=== PATIENT | female | born 1945 | race Caucasian/White ===

== ENCOUNTER 2016-09-12 23:56 | Inpatient (IN) | payer OTHER ==
[~2016-09-12] VITALS: Ht 154.9 cm; Wt 65.5 kg
[2016-09-13 00:55] LABS: BASOPHIL % 0.2 % (0-2); PLATELET COUNT 391 x10^3mcL (130-400)
[2016-09-13 01:05] LABS: RED CELL DISTRIBUTION WIDTH 17.8 % (11.5-14.5)
[2016-09-13 01:17] LABS: ALBUMIN 2.9 g/dL (3.4-5.0); ALKALINE PHOSPHATASE 79 U/L (46-116); ALT/SGPT 15 U/L (14-59); AST/SGOT 14 U/L (15-37); BILIRUBIN TOTAL 0.1 mg/dL (0.20-1.00); CALCIUM 11.1 mg/dL (8.5-10.1); CARBON DIOXIDE 24.2 mmol/L (21-32); CHLORIDE SERUM 103 mmol/L (98-107); CREATININE SERUM 0.6 mg/dL (0.6-1.0); GFR1 > 60 mL/min; GLUCOSE SERUM 93 mg/dL (74-106); POTASSIUM SERUM 4.6 mmol/L (3.5-5.1); SODIUM SERUM 136 mmol/L (136-145); TOTAL PROTEIN, SERUM 7.8 g/dL (6.4-8.2)
[2016-09-13] MEDS ORDERED: HUMALOG MIX 75/10 ML SC (03:20)
[2016-09-13] MEDS ORDERED: INDOMETHACIN50 MG PO (03:21)
[2016-09-13] MEDS ORDERED: METFORMIN HCL850 MG PO (03:21)
[2016-09-13] MEDS ORDERED: LISINOPRIL10 MG PO (03:21)
[2016-09-13 04:29] LABS: CHOLESTEROL/HDL RATIO 1.9
[2016-09-13 04:34] LABS: T3 TOTAL 0.89 ng/mL
[2016-09-13 04:36] LABS: FREE T4 1.15 ng/dL (0.76-1.46); FREE THYROXINE INDEX 2.9 ug/dL (1.4-4.5); T4(THYROXINE) 8.1 ug/dL (4.7-13.3)
[2016-09-13 05:32] VITALS: BP 134/75
[2016-09-13 07:20] LABS: UA SPECIFIC GRAVITY >=1.030 (1.005-1.035); microscopic required? YES; urine erythrocyte TRACE (NEGATIVE)
[2016-09-13 11:29] VITALS: BP 135/76
[2016-09-13 14:35] VITALS: BP 114/64
[2016-09-13 15:43] VITALS: Ht 154.9 cm; Wt 65.5 kg
[2016-09-13 16:36] LABS: IRON 24 ug/dL (50-170); TOTAL IRON BINDING CAPACITY 293 ug/dL (250-450)
[2016-09-13 16:43] LABS: RED BLOOD CELLS 4.95 M/mm3 (4.10-5.10)
[2016-09-13 18:00] VITALS: BP 109/63
[2016-09-13 22:03] VITALS: BP 119/63
[2016-09-14 06:14] VITALS: BP 122/69
[2016-09-14 06:40] LABS: PLATELET COUNT 357 x10^3mcL (130-400)
[2016-09-14 06:53] LABS: MAGNESIUM 1.7 mg/dL (1.8-2.4); PHOSPHOROUS 2.5 mg/dL (2.5-4.9)
[2016-09-14 06:57] LABS: ALKALINE PHOSPHATASE 73 U/L (46-116); ALT/SGPT 17 U/L (14-59); AST/SGOT 12 U/L (15-37); BILIRUBIN TOTAL 0.18 mg/dL (0.20-1.00); CALCIUM 9.9 mg/dL (8.5-10.1); CARBON DIOXIDE 27.6 mmol/L (21-32); CHLORIDE SERUM 109 mmol/L (98-107); CREATININE SERUM 0.5 mg/dL (0.6-1.0); GFR1 > 60 mL/min; GLUCOSE SERUM 140 mg/dL (74-106); POTASSIUM SERUM 4.5 mmol/L (3.5-5.1); SODIUM SERUM 143 mmol/L (136-145)
[2016-09-14 07:08] LABS: ALBUMIN 2.5 g/dL (3.4-5.0)
[2016-09-14 09:43] LABS: BAND NEUTROPHIL 7 % (0-10); BASOPHIL 0 % (0-2); MONOCYTE 7 % (0-7); SEGMENTED NEUTROPHILS 62 % (37-75); rbc morphology (normal/abnorm) ABNORMAL (NORMAL); tear drop cell (dacryocyte) 1+
[2016-09-14 09:44] LABS: PLATELET MORPHOLOGY LARGE PLATELET SEEN
[2016-09-14 10:04] VITALS: BP 126/55
[2016-09-14 13:35] VITALS: BP 131/59
[2016-09-14 17:21] VITALS: BP 122/67
[2016-09-14 21:55] VITALS: BP 140/65
[2016-09-15 06:08] VITALS: BP 119/61
[2016-09-15 06:41] LABS: CALCIUM 9.4 mg/dL (8.5-10.1); CARBON DIOXIDE 26.4 mmol/L (21-32); CHLORIDE SERUM 99 mmol/L (98-107); CREATININE SERUM 0.6 mg/dL (0.6-1.0); GFR1 > 60 mL/min; GLUCOSE SERUM 207 mg/dL (74-106); MAGNESIUM 1.7 mg/dL (1.8-2.4); PHOSPHOROUS 2.1 mg/dL (2.5-4.9); SODIUM SERUM 134 mmol/L (136-145)
[2016-09-15 06:47] LABS: PLATELET COUNT 329 x10^3mcL (130-400)
[2016-09-15 06:53] LABS: RED CELL DISTRIBUTION WIDTH 18.5 % (11.5-14.5)
[2016-09-15 09:54] LABS: MONOCYTE 7 % (0-7)
[2016-09-15 09:55] LABS: BAND NEUTROPHIL 0 % (0-10); BASOPHIL 0 % (0-2); SEGMENTED NEUTROPHILS 76 % (37-75)
[2016-09-15 09:57] LABS: rbc morphology (normal/abnorm) ABNORMAL (NORMAL)
[2016-09-15 17:38] VITALS: BP 115/72
[2016-09-15 22:26] VITALS: BP 115/64
[2016-09-16 06:38] LABS: PLATELET COUNT 325 x10^3mcL (130-400)
[2016-09-16 06:51] LABS: CALCIUM 9.6 mg/dL (8.5-10.1); CHLORIDE SERUM 105 mmol/L (98-107); CREATININE SERUM 0.6 mg/dL (0.6-1.0); GFR1 > 60 mL/min; GLUCOSE SERUM 183 mg/dL (74-106); PHOSPHOROUS 2.6 mg/dL (2.5-4.9); POTASSIUM SERUM 4.2 mmol/L (3.5-5.1); SODIUM SERUM 140 mmol/L (136-145)
[2016-09-16 07:00] LABS: RED CELL DISTRIBUTION WIDTH 18.7 % (11.5-14.5)
[2016-09-16 07:02] VITALS: BP 105/55
[2016-09-16 08:54] LABS: rbc morphology (normal/abnorm) ABNORMAL (NORMAL); schistocyte (helmet cell) 1+
[2016-09-16 08:55] LABS: target cell (codocyte) 1+
[2016-09-16 09:56] LABS: BAND NEUTROPHIL 2 % (0-10); MONOCYTE 14 % (0-7); SEGMENTED NEUTROPHILS 71 % (37-75)
[2016-09-16 10:44] VITALS: BP 117/51
[2016-09-16] MEDS ORDERED: LEVAQUIN750 MG PO (13:33)
[2016-09-16] MEDS ORDERED: LAC PO (13:34)
[2016-09-16] MEDS ORDERED: CLINDAMYCIN HC300 MG PO (13:34)
[2016-09-16] MEDS ORDERED: FERROUS SULFAT325 M2 PO (13:36)
[2016-09-16] MEDS ORDERED: PHARMASSURE VI500 MG PO (13:37)
== END 2016-09-16 16:14 | disposition home or self-care (01) | DRG 871 ==
LOC: ED 23:56 → DU 09-13 02:45 → MU 09-15 10:15
PROVIDERS: Emergency Medicine; Family Medicine; ADMIT Family Medicine
PROC: 0BBK3ZX Excision of Right Lung, Percutaneous Approach, Diagnostic (ICD-10-PCS; principal; 2016-09-15)
DX: A41.9 Sepsis, unspecified organism (principal); J69.0 Pneumonitis due to inhalation of food and vomit; G93.41 Metabolic encephalopathy; N17.0 Acute kidney failure with tubular necrosis; E43 Unspecified severe protein-calorie malnutrition; N39.0 Urinary tract infection, site not specified; C34.91 Malignant neoplasm of unspecified part of right bronchus or lung; R65.20 Severe sepsis without septic shock; E11.649 Type 2 diabetes mellitus with hypoglycemia without coma; E11.51 Type 2 diabetes mellitus with diabetic peripheral angiopathy without gangrene; D64.9 Anemia, unspecified; Z79.4 Long term (current) use of insulin; Z79.84 Long term (current) use of oral hypoglycemic drugs
CPT/HCPCS: 32405; 83880; 84439; 94150; C1894; J0696; J1956; J2001; J2270; J3490; J7030; J7042; J7620; J7633; Q0092; Q9967